=== PATIENT | female | born 1990 | race African-American/Black ===

== ENCOUNTER 2017-07-01 14:13 | Emergency (ER) | payer MEDICAID, OTHER ==
[~2017-07-01] VITALS: Ht 162.6 cm; Wt 59.0 kg
[~2017-07-01 14:13] MED LIST: ALBU18HF2 IH; FLUT1DIS3 IH
[2017-07-01] MEDS ORDERED: KETOROLAC 60MG/2ML VIAL IM ONE (17:30)
[2017-07-01 17:54] VITALS: BP 106/75
== END 2017-07-01 17:57 | disposition home or self-care (01) ==
LOC: ER 14:39
DX: M54.2 Cervicalgia (principal); M79.1 Myalgia; V49.9XXA Car occupant (driver) (passenger) injured in unspecified traffic accident, initial encounter; Y93.9 Activity, unspecified; Y92.410 Unspecified street and highway as the place of occurrence of the external cause
CPT/HCPCS: 96372; 99283; J1885

== ENCOUNTER 2018-01-09 13:52 | Emergency (ER) | payer MEDICAID ==
[~2018-01-09] VITALS: Ht 162.6 cm; Wt 61.0 kg
[2018-01-09] MEDS ORDERED: MECLIZINE 25MG TABLET PO ONE (18:30)
[2018-01-09] MEDS ORDERED: ONDANSETRON 4MG ODT PO ONE (18:30)
[2018-01-09 19:22] LABS: *AMPHETAMINES SCREEN URINE NEGATIVE (NEGATIVE); *BARBITURATES SCREEN URINE NEGATIVE (NEGATIVE); *BENZODIAZEPINES SCREEN URINE NEGATIVE (NEGATIVE); METHADONE URINE SCREEN NEGATIVE (NEGATIVE); OPIATES URINE SCREEN NEGATIVE (NEGATIVE); PHENCYCLIDINE URINE SCREEN NEGATIVE (NEGATIVE)
[2018-01-09 19:23] LABS: *COCAINE SCREEN URINE NEGATIVE (NEGATIVE)
[2018-01-09 19:33] LABS: CANNABINOID URINE SCREEN PRESUMTIVE POSITIVE (NEGATIVE)
[2018-01-09 20:57] VITALS: BP 100/68
== END 2018-01-09 21:07 | disposition home or self-care (01) ==
LOC: ER 15:46
DX: F16.10 Hallucinogen abuse, uncomplicated (principal); R11.2 Nausea with vomiting, unspecified; R42 Dizziness and giddiness; J45.909 Unspecified asthma, uncomplicated; Z79.899 Other long term (current) drug therapy
CPT/HCPCS: 80305; 81025; 99283; Q0162; J8597

== ENCOUNTER 2018-02-06 17:54 | Emergency (ER) | payer MEDICAID ==
[~2018-02-06] VITALS: Ht 162.6 cm; Wt 60.0 kg
[2018-02-06 18:30] LABS: BASOPHILS % 0.2 % (0.0-2.0); EOSINOPHILS % 3.9 % (0.0-5.0); HEMATOCRIT. 35.5 % (36.0-48.0); HEMOGLOBIN. 11.9 g/dL (12.0-16.0); LYMPHOCYTES % 32.6 % (20.0-50.0); MEAN CORPUSCULAR HEMOGLOBIN 30.8 pg (28.0-32.0); MEAN CORPUSCULAR VOLUME 91.8 fL (81.0-99.0); MEAN PLATELET VOLUME 7.5 fl (7.4-10.4); MONOCYTES % 11.5 % (2.0-8.0); NEUTROPHILS % 51.8 % (40.0-76.0); PLATELET 239 x1000/uL (130-400); RED BLOOD CELL COUNT 3.86 mill/uL (4.2-5.4); RED CELL DISTRIBUTION WIDTH 13.4 % (11.6-14.6)
[2018-02-06 18:34] LABS: CHLORIDE 107 mEq/L (98-107)
[2018-02-06] MEDS ORDERED: DICYCLOMINE HCL 10MG CAPSULE PO ONE (20:30)
[2018-02-06 20:47] LABS: CLARITY URINE CLEAR (CLEAR); COLOR URINE YELLOW (YELLOW); KETONES URINE NEGATIVE (NEGATIVE); LEUKOCYTE ESTERASE URINE NEGATIVE (NEGATIVE); NITRITE URINE NEGATIVE (NEGATIVE); OCCULT BLOOD URINE 3+ (NEGATIVE); PH URINE 5.5 (4.5-8.0); PROTEIN URINE NEGATIVE (NEGATIVE); UROBILINOGEN URINE 0.2 E.U./dL (0.2-1.0)
[2018-02-06 22:09] VITALS: BP 99/64
== END 2018-02-06 22:11 | disposition home or self-care (01) ==
LOC: ER 17:54
DX: A08.8 Other specified intestinal infections (principal); J45.909 Unspecified asthma, uncomplicated
CPT/HCPCS: 36415; 80053; 81003; 85025; 85610; 99284

== ENCOUNTER 2019-07-26 01:19 | Emergency (ER) | payer MEDICAID ==
[~2019-07-26] VITALS: Ht 165.1 cm; Wt 59.0 kg
[2019-07-26] MEDS ORDERED: IPRATROPIUM BROMIDE (0.02%) 0.5MG/2.5ML NEB HHN STA (02:48)
[2019-07-26] MEDS ORDERED: ALBUTEROL (0.083%) 2.5MG/3ML NEB HHN STA (02:48)
[2019-07-26] MEDS ORDERED: METHYLPREDNISOLONE SOD SUCC 125 MG/2 ML VIAL IM STA (02:48)
[2019-07-26 05:27] VITALS: BP 106/56
== END 2019-07-26 05:30 | disposition home or self-care (01) ==
LOC: ER 01:41
DX: J45.909 Unspecified asthma, uncomplicated (principal); J06.9 Acute upper respiratory infection, unspecified; Z79.899 Other long term (current) drug therapy; Z87.440 Personal history of urinary (tract) infections; F12.10 Cannabis abuse, uncomplicated
CPT/HCPCS: 81025; 94640; 96372; 99283; J2930; J7611; Z7610

== ENCOUNTER 2020-11-25 07:39 | Emergency (ER) | payer MEDICAID ==
[~2020-11-25] VITALS: Ht 162.6 cm; Wt 68.0 kg
[2020-11-25] MEDS ORDERED: METHYLPREDNISOLONE SOD SUCC 125 MG/2 ML VIAL IV STA (07:58)
[2020-11-25] MEDS ORDERED: IPRATROPIUM BROMIDE (0.02%) 0.5MG/2.5ML NEB HHN STA (07:58)
[2020-11-25] MEDS ORDERED: ALBUTEROL (0.083%) 2.5MG/3ML NEB HHN STA (07:58)
[2020-11-25] MEDS ORDERED: MAGNESIUM 2 G PREMIX 50 ML IV STA (07:58)
[2020-11-25 08:44] VITALS: BP 113/70
[2020-11-25] MEDS ORDERED: P50 PO (11:17)
[2020-11-25] MEDS ORDERED: ALBU18HF2 IH (11:17)
== END 2020-11-25 11:27 | disposition home or self-care (01) ==
LOC: ER 07:39
DX: J45.901 Unspecified asthma with (acute) exacerbation (principal); Z87.440 Personal history of urinary (tract) infections
CPT/HCPCS: 71045; 93005; 94640; 96365; 96375; 99284; J2930; J3475; Z7610

== ENCOUNTER 2023-12-09 12:08 | Emergency (ER) | payer BC, MEDICAID, OTHER ==
[~2023-12-09] VITALS: Ht 162.6 cm; Wt 63.0 kg
[~2023-12-09 12:08] MED LIST changes: +P50 PO
[2023-12-09] MEDS: DEXAMETHASONE 10 MG/ML VIAL PO ONE (13:00)
[2023-12-09 13:15] VITALS: PULSE 72; RESP 22; O2SAT 97
[2023-12-09] MEDS: IPRATROPIUM/ALBUTEROL 0.5-3(2.5)MG/3ML NEB HHN ONE (13:15)
[2023-12-09 14:15] VITALS: BP 110/69; PULSE 84; RESP 19; TEMP 97.8
[2023-12-09] MEDS ORDERED: P50 MT (14:31)
== END 2023-12-09 15:52 | disposition home or self-care (01) ==
LOC: ER 12:08
DX: J45.901 Unspecified asthma with (acute) exacerbation (principal); F12.10 Cannabis abuse, uncomplicated; Z87.440 Personal history of urinary (tract) infections; Z79.899 Other long term (current) drug therapy
CPT/HCPCS: 71045; 94640; 99283; J1100; Z7610 ×2